=== PATIENT | male | born 1960 | race Caucasian/White ===

== ENCOUNTER 2022-11-08 08:12 | Day surgery (SDC) | payer MEDICAID ==
[~2022-11-08] VITALS: Ht 157.5 cm; Wt 87.1 kg
[2022-11-08] MEDS ORDERED: MIDAZOLAM HCL 5 MG/5 ML VIAL ONE (09:19)
[2022-11-08] MEDS ORDERED: fentaNYL CITRATE/PF 100 MCG/2 ML AMP ONE (09:19)
[2022-11-08 14:35] VITALS: BP_SYST 124
== END 2022-11-08 10:51 | disposition home or self-care (01) ==
LOC: SDS 08:12 → SMU 08:15 → SDS 10:51
PROVIDERS: ATTEND Internal Medicine
DX: R10.9 Unspecified abdominal pain (principal); D12.2 Benign neoplasm of ascending colon; D12.3 Benign neoplasm of transverse colon; D12.4 Benign neoplasm of descending colon; D12.5 Benign neoplasm of sigmoid colon; K64.8 Other hemorrhoids; I10 Essential (primary) hypertension; Z80.0 Family history of malignant neoplasm of digestive organs; E11.9 Type 2 diabetes mellitus without complications; E78.5 Hyperlipidemia, unspecified; Z79.84 Long term (current) use of oral hypoglycemic drugs; Z79.899 Other long term (current) drug therapy; Z20.822 Contact with and (suspected) exposure to COVID-19
CPT/HCPCS: 45380; 45385; 82962; 88305; 99152; G0378; J2250; J3010